=== PATIENT | male | born 1970 | race Hispanic/Latino ===

== ENCOUNTER 2020-07-04 13:15 | Emergency (ER) | payer OTHER, SELFPAY ==
[2020-07-04 13:42] LABS: Protime INR 1.02
--- NOTE | 2020-07-04 13:42 | RAD REPORT ---
EXAM DESCRIPTION: CT - Ct Stroke Brain Wo Cont - 07/04/2020 1:34 pm CLINICAL HISTORY: right sided weakness COMPARISON: No comparisons TECHNIQUE: Axial 5 millimeter thick images of the head were obtained without IV contrast. All CT scans are performed using dose optimization technique as appropriate and may include automated exposure control or mA/KV adjustment according to patient size. FINDINGS: No intracranial hemorrhage is present. No cortical edema or sulcal effacement. No acute co rtical based infarction identified. The patient does have subtle diminished attenuation in the single stroke preformer ior limb internal capsule on the left and into the left thalamus. There is superior extension of subt le hypodensity in the deep periventricular white matter of the posterior left frontal lobe. These fin dings are concerning for nonhemorrhagic CVA and could explain the patient's right side motor symptoms . No extra-axial fluid collections. Siu matter-white matter differentiation is preserved. Visualized portions of the mastoid air cells, paranasal sinuses, and orbits are unremarkable. Findings telephoned to the referring clinician [id number] hours IMPRESSION: No intracranial hemorrhage. No mass, edema or midline shift. Suspected nonhemorrhagic CVA changes in the posterior limb internal capsule on the left, left thalamu s and extending into the deep periventricular white matter of the left frontal lobe.
[2020-07-04 13:43] LABS: Absolute Lymphocytes (CBC) 2.6 K/uL (0.7-4.9); Basophils % 0.4 % (0-1.3); Lymphocytes % 24.2 % (15.3-44.8); MPV 8.5 fL (7.6-11.3)
[2020-07-04] MEDS ORDERED: NA CHLORIDE 0.9% 0 ML ONE (13:46)
[2020-07-04 13:57] LABS: ALT/SGPT 34 U/L (12-78); AST/SGOT 9 U/L (15-37); Albumin 3.8 g/dL (3.4-5.0); Alkaline Phosphatase 95 U/L (45-117); BUN Blood Urea Nitrogen 11 mg/dL (7-18); Bicarbonate 30 mmol/L (21-32); Bilirubin Direct 0.1 mg/dL (0-0.2); Bilirubin Total 0.5 mg/dL (0.2-1.0); Glucose Level 111 mg/dL (74-106); Magnesium 2.2 mg/dL (1.8-2.4); NT PRO-BNP 25 pg/mL (<125); Potassium 3.2 mmol/L (3.5-5.1); Protein, Total 7.8 g/dL (6.4-8.2); Sodium Level 139 mmol/L (136-145); Troponin (Emerg Dept Use Only) < 0.02 ng/mL (0.0-0.045)
--- NOTE | 2020-07-04 14:07 | EDPHYS ---
Physician Documentation [facility] Name: Alexander Reardon Age: 49 yrs Sex: Male : 1970 Arrival Date: 07/04/2020 Time: 13:16 Bed 5 Private MD: ED Physician Prasad Milian HPI: 07/04 13:28 This 49 yrs old Male presents to ER via Wheelchair with complaints of High jmm Blood Pressure, S/S of Possible Stroke. 13:28 The patient's problem is reported as a facial droop, paresthesias, weakness, in the jmm right upper extremity, in the right lower extremity. Onset: The symptoms/episode began/occurred yesterday. Duration: The episode is continuous. This is a 49 year old male with a history of htn that presents to the ED with complaints of right upper and right lower leg weakness. Patient states he awoke yesterday with numbness to the right side of his body. . Historical: - Allergies: 13:29 No Known Allergies; jd3 - Home Meds: 13:29 losartan oral oral [Active]; jd3 - PMHx: 13:29 Hypertension; jd3 - PSHx: 13:29 None; jd3 - Immunization history:: Adult Immunizations up to date. - Social history:: Smoking status: Patient reports the use of cigarette tobacco products, denies chronic smoking, but will smoke occasionally. ROS: 13:28 Constitutional: Negative for fever, chills, and weight loss, Cardiovascular: Negative jmm for chest pain, palpitations, and edema, Respiratory: Negative for shortness of breath, cough, wheezing, and pleuritic chest pain. 13:28 Neuro: Positive for weakness. 13:28 All other systems are negative. Exam: 13:28 Radiologist reports: possible left sided infarct. No hemorrhage jmm 13:28 Constitutional: This is a well developed, well nourished patient who is awake, alert, and in no acute distress. 13:28 Eyes: EOMI, no conjunctival erythema appreciated ENT: Moist Mucus Membranes Neck: Trachea midline, Supple Chest/axilla: Normal chest wall appearance and motion. Cardiovascular: Regular rate and rhythm. No edema appreciated Respiratory: Normal respirations, no respiratory distress appreciated Abdomen/GI: Non distended, soft Back: Normal ROM Skin: General appearance color normal 13:28 Head/face: right sided facial droop. 13:28 Neuro: Orientation: is normal, Mentation: is normal, Memory: is normal, Cranial nerves: facial droop noted on right, Motor: strength is 5/5 in the left arm and left leg, strength is 4/5 in the right arm. 13:28 Psych: Behavior/mood is pleasant, cooperative. 13:40 ECG was reviewed by the Attending Physician. [facility] Vital Signs: 13:30 BP 200 / 129; Pulse 70; Resp 17 S; Temp 98.3(O); Pulse Ox 99% on R/A; Weight 99.79 kg jd3 (R); Height 5 ft. 7 in. (170.18 cm) (R); Pain 0/10; 13:45 BP 174 / 109; Pulse 60; Resp 18 S; Pulse Ox 98% on R/A; iw 13:50 BP 142 / 84; Pulse 61; Resp 18; Pulse Ox 99% on R/A; em 14:00 BP 120 / 96; Pulse 49; Resp 18; Pulse Ox 98% on R/A; em 14:08 BP 104 / 79; Pulse 38; Resp 16; Pulse Ox 97% on R/A; em 14:20 BP 132 / 89; Pulse 54; Resp 18; Pulse Ox 97% on R/A; em 14:40 BP 139 / 96; Pulse 53; Resp 18; Pulse Ox 98% on R/A; em 17:00 BP 147 / 91; Pulse 56; Resp 18; Pulse Ox 99% on R/A; em 17:40 BP 140 / 85; Pulse 58; Resp 18; Pulse Ox 99% on R/A; em 13:30 Body Mass Index 34.46 (99.79 kg, 170.18 cm) jd3 NIH Stroke Scale Scores: 13:30 NIHSS Score: 3 em 13:52 NIHSS Score: [address] [facility] 14:59 NIHSS Score: [address] [facility] MDM: 13:25 Patient medically screened. [facility] 14:03 Data reviewed: vital signs, nurses notes. Counseling: I had a detailed discussion with rhina the patient and/or guardian regarding: the historical points, exam findings, and any diagnostic results supporting the discharge/admit diagnosis, lab results, radiology results, the need for further work-up and treatment in the hospital. ED course: I discussed the patient with Dr. Cruz whom will consult on admission. I did not administer TPA, patient out of the window. . 15:20 ED course: I was notified by Dr. Childress the concern for brain stem involvement after the [facility] patient developed an episode of bradycardia and hypotension with worsening right sided weakness. . 15:20 ED course: I discussed the patient with Dr. Michael along with concerns for brain stem [facility] involvement. Advised the patient could be managed at our hospital with IVF and q 2 hour neuro checks. . ED course: . 16:36 ED course: Dr. Childress discussed the patient with Dr. cruz whom will keep the patient [facility] in the ICU. . 17:00 ED course: Dr. Cruz and Dr. Childress evaluated MRI results. I was advised to transfer [facility] the patient due to brain stem/autonomic involvement.. 17:04 ED course: I again discussed the patient with Dr. Michael along with MRI results. Again [facility] states the patient can be managed at our facility. . 17:51 ED course: I discussed the patient with Dr. Escalera regarding the patient at [facility] in [facility]. Unable to accommodate the patient due to no neuro icu. . 18:43 ED course: . [facility] 19:08 ED course: I discussed the patient with Dr. Cummins whom accepted transfer to [facility] Stroke Unit. 07/04 13:26 Order name: Basic Metabolic Panel; Complete Time: 13:[address] [facility] 07/04 13:26 Order name: CBC with Diff; Complete Time: 14:[address] [facility] 07/04 13:26 Order name: LFT's; Complete Time: 13:[address] [facility] 07/04 13:26 Order name: Magnesium; Complete Time: 13:[address] [facility] 07/04 13:26 Order name: NT PRO-BNP; Complete Time: 13:[address] [facility] 07/04 13:26 Order name: PT-INR; Complete Time: 14:[address] [facility] 07/04 13:26 Order name: Troponin (emerg Dept Use Only); Complete Time: 13:[address] [facility] 07/04 13:26 Order name: XRAY Chest (1 view) [facility] 07/04 13:26 Order name: CT Stroke Brain w/o Contrast; Complete Time: 13:[address] [facility] 07/04 13:39 Order name: Glucose, Ancillary Testing; Complete Time: 13:44 EDMS 07/04 14:06 Order name: Echo with Doppler EDMS 07/04 14:09 Order name: MRA Head Wo Cont; Complete Time: 16:59 EDMS 07/04 14:29 Order name: Glucose, Ancillary Testing; Complete Time: 14:29 EDMS 07/04 13:26 Order name: EKG; Complete Time: 13:27 jmm 07/04 13:26 Order name: Cardiac monitoring; Complete Time: 13:48 jmm 07/04 13:26 Order name: EKG - Nurse/Tech; Complete Time: 13:48 jmm 07/04 13:26 Order name: IV Saline Lock; Complete Time: 13:30 jmm 07/04 13:26 Order name: Labs collected and sent; Complete Time: 13:30 jmm 07/04 14:06 Order name: CONS Physician Consult EDMS 07/04 14:09 Order name: MRA Neck W/Wo Cont; Complete Time: 17:02 EDMS 07/04 14:09 Order name: Brain W/Wo Cont; Complete Time: 16:59 EDMS 07/04 15:16 Order name: RAD; Complete Time: 15:24 EDMS 07/04 17:33 Order name: Diet Regular; Complete Time: 17:34 em 07/04 13:26 Order name: O2 Per Protocol; Complete Time: 13:30 jmm 07/04 13:26 Order name: O2 Sat Monitoring; Complete Time: 13:30 jmm EC:40 Rate is 61 beats/min. Rhythm is regular. QRS [place] is Normal. SC interval is normal. QRS jmm interval is normal. QT interval is normal. No Q waves. T waves are Flattened in leads aVL, aVF. Reviewed by me. Administered Medications: 13:58 Drug: Aspirin Chewable Tablet 324 mg Route: PO; em 14:00 Follow up: Response: No adverse reaction em 13:59 Drug: foLIC Acid 1 mg Route: IVPB; Site: right antecubital; em 14:30 Follow up: Response: No adverse reaction; IV Status: Completed infusion em 14:00 Drug: Thiamine 100 mg Route: IV; Rate: calculated rate; Site: right antecubital; em 14:30 Follow up: Response: No adverse reaction; IV Status: Completed infusion em 14:07 Drug: Zofran (Ondansetron) 4 mg Route: IVP; Site: right antecubital; em 14:39 Follow up: Response: No adverse reaction; Marked relief of symptoms; Nausea is decreasedem 14:15 Drug: NS 0.9% 1000 ml Route: IV; Rate: 1 bolus; Site: left forearm; em 15:14 Follow up: IV Status: Completed infusion; IV Intake: 1000ml em 15:14 Not Given (Hemodynamic Parameters): niCARdipine (25mg/250ml) 5 mg/hr IV at calculated em rate continuous; Adjust 2.5 mg/hr every 10 minutes to keep SBP between 140 mmHg and 120 mmHg. Range 0 to 15 mg/hr. Wean to minimum required dose. Point of Care Testing: Blood Glucose: 13:30 Blood Glucose: 108 mg/dL; em Ranges: Critical Glucose Levels:Adult <50 mg/dl or >400 mg/dl <40 mg/dl or >180 mg/dl Disposition: 07/04/20 19:09 Transfer ordered to [facility]. Diagnosis is Cerebral infarction. - Reason for transfer: Higher level of care. - Accepting physician is Cerebral Infarction. - Condition is Stable. - Problem is new. - Symptoms are unchanged. NIH Stroke Scale - NIH Stroke Score Date: 07/04/2020 Time: 13:30 Total Score = 3 1a. Level of Consciousness (LOC) - 0(Alert) 1b. Level of Consciousness (LOC) (Year \T\ Age) - 0(Both) 1c. LOC Commands (Open \T\ Closes Eyes/Drive In Teller) - 0(Both) 2. Best Gaze (Lateral Gaze Paresis) - 0(Normal) 3. Visual Field Loss - 0(No visual loss) 4. Facial Palsy - 1(Minor Paralysis) 5a. Left Arm: Motor (10-second hold) - 0(No drift) 5b. Right Arm: Motor (10-second hold) - 1(Drift) 6a. Left Leg: Motor (5-second hold - always test supine) - 0(No drift) 6b. Right Leg: Motor (5-second hold - always test supine) - 1(Drift) 7. Limb Ataxia (finger/nose \T\ heel/oquendo - test with eyes open) - 0(Absent) 8. Sensory Loss (pinprick arms/legs/face) - 0(Normal) 9. Best Language: Aphasia (description/naming/reading) - 0(No aphasia) 10. Dysarthria (speech clarity - read or repeat words) - 0(Normal) 11. Extinction and Inattention (visual/tactile/auditory/spatial/personal) - 0(No abnormality) Initials: NIH Stroke Scale - NIH Stroke Score Date: 07/04/2020 Time: 13:52 Total Score = 3 1a. Level of Consciousness (LOC) - 0(Alert) 1b. Level of Consciousness (LOC) (Year \T\ Age) - 0(Both) 1c. LOC Commands (Open \T\ Closes Eyes/Drive In Teller) - 0(Both) 2. Best Gaze (Lateral Gaze Paresis) - 0(Normal) 3. Visual Field Loss - 0(No visual loss) 4. Facial Palsy - 1(Minor Paralysis) 5a. Left Arm: Motor (10-second hold) - 0(No drift) 5b. Right Arm: Motor (10-second hold) - 1(Drift) 6a. Left Leg: Motor (5-second hold - always test supine) - 0(No drift) 6b. Right Leg: Motor (5-second hold - always test supine) - 1(Drift) 7. Limb Ataxia (finger/nose \T\ heel/oquendo - test with eyes open) - 0(Absent) 8. Sensory Loss (pinprick arms/legs/face) - 0(Normal) 9. Best Language: Aphasia (description/naming/reading) - 0(No aphasia) 10. Dysarthria (speech clarity - read or repeat words) - 0(Normal) 11. Extinction and Inattention (visual/tactile/auditory/spatial/personal) - 0(No abnormality) Initials: [facility] NIH Stroke Scale - NIH Stroke Score Date: 07/04/2020 Time: 14:59 Total Score = 4 1a. Level of Consciousness (LOC) - 0(Alert) 1b. Level of Consciousness (LOC) (Year \T\ Age) - 0(Both) 1c. LOC Commands (Open \T\ Closes Eyes/Drive In Teller) - 0(Both) 2. Best Gaze (Lateral Gaze Paresis) - 0(Normal) 3. Visual Field Loss - 0(No visual loss) 4. Facial Palsy - 1(Minor Paralysis) 5a. Left Arm: Motor (10-second hold) - 0(No drift) 5b. Right Arm: Motor (10-second hold) - 1(Drift) 6a. Left Leg: Motor (5-second hold - always test supine) - 0(No drift) 6b. Right Leg: Motor (5-second hold - always test supine) - 2(Drift, some effort against gravity) 7. Limb Ataxia (finger/nose \T\ heel/oquendo - test with eyes open) - 0(Absent) 8. Sensory Loss (pinprick arms/legs/face) - 0(Normal) 9. Best Language: Aphasia (description/naming/reading) - 0(No aphasia) 10. Dysarthria (speech clarity - read or repeat words) - 0(Normal) 11. Extinction and Inattention (visual/tactile/auditory/spatial/personal) - 0(No abnormality) Initials: [facility] Addendum: 07/06/2020 14:35 Co-signature as Attending Physician, Prasad Milian MD I agree with the [facility] assessment and plan of care. Signatures: Dispatcher [employer] [facility] Prasad Milian MD MD [facility] Catracho Loo PA PA [facility] Singh Fernandez, RN RN em Matt Marie em1 Rajat Morrow RN RN jEvan Luna RN RN mg2 Corrections: (The following items were deleted from the chart) 07/04 14:09 14:01 MR STROKE PROTOCOL+MRI.RAD.BRZ ordered. [facility] 14:24 14:06 Hospitalization Ordered by Sukhjinder Childress MD for Observation. Preliminary em1 diagnosis is Cerebral infarction. Bed requested for Telemetry/MedSurg (observation). Status is Observation. Condition is Stable. Problem is new. Symptoms are unchanged. [facility] 14:45 14:24 07/04/2020 14:06 Hospitalization Ordered by Sukhjinder Childress MD for [facility] Observation. Preliminary diagnosis is Cerebral infarction. Bed requested for Telemetry/MedSurg (observation). Status is Observation. Condition is Stable. Problem is new. Symptoms are unchanged. em1 16:37 14:46 07/04/2020 14:46 Transfer ordered to [facility]. Diagnosis is Cerebral infarction. Reason for transfer: Higher level of care. Accepting physician is Neurology. Condition is Stable. Problem is new. Symptoms are unchanged. [facility] 17:01 16:39 Hospitalization Ordered by Sukhjinder Childress MD for Inpatient Admission. [facility] Preliminary diagnosis is Cerebral infarction. Bed requested for Intensive Care Unit. Status is Inpatient Admission. Condition is Stable. Problem is new. Symptoms are unchanged. [facility] 18:24 14:03 ED course: I discussed the patient with Dr. Cruz whom will consult on [facility] admission. I did not administer TPA, patient out of the window. . [facility] 18:46 18:43 ED course: I again discussed the patient with Dr. Michael along with MRI [facility] results. Again states the patient can be managed at our facility. . [facility] 19:08 17:01 07/04/2020 17:[address] [facility]. Diagnosis is Cerebral infarction. Reason for transfer: Higher level of care. Accepting physician is Alec. Condition is Stable. Problem is new. Symptoms are unchanged. [facility] 20:13 19:09 07/04/2020 19:09 Transfer ordered to [facility]. Diagnosis mg2 is Cerebral infarction. Reason for transfer: Higher level of care. Accepting physician is Cerebral Infarction. Condition is Stable. Problem is new. Symptoms are unchanged. [facility]
--- NOTE | 2020-07-04 14:07 | ER ---
Nurse's Notes [facility] Name: Alexander Reardon Age: 49 yrs Sex: Male : 1970 Arrival Date: 07/04/2020 Time: 13:16 Bed 5 Private MD: Diagnosis: Cerebral infarction Presentation: 07/04 13:26 Chief complaint: Patient states: "I woke up yesterday and I was having numbness of my jd3 right side of my face and hand. today it feels worse, like my right leg is numb and my right eye feels heavy.". Coronavirus screen: At this time, the client does not indicate any symptoms associated with coronavirus-19. Ebola Screen: Patient negative for fever greater than or equal to 101.5 degrees Fahrenheit, and additional compatible Ebola Virus Disease symptoms. An acute neurological deficit is present. The charge nurse has been notified. The patient has been moved to a treatment area. Pre-hospital glucose is not applicable to this patient. Initial Sepsis Screen: Does the patient meet any 2 criteria? No. Patient's initial sepsis screen is negative. Does the patient have a suspected source of infection? No. Patient's initial sepsis screen is negative. Risk Assessment: Do you want to hurt yourself or someone else? Patient reports no desire to harm self or others. Onset of symptoms was July 03, 2020 at 08:00. 13:26 Method Of Arrival: Wheelchair jd3 13:26 Acuity: MARLY 2 jd3 Triage Assessment: 13:29 The onset of the patients symptoms was July 03, 2020 at 08:00. General: Appears in jd3 no apparent distress. comfortable, Behavior is calm, cooperative, appropriate for age. Neuro: Level of Consciousness is awake, alert, obeys commands, Oriented to person, place, time, situation, Reports numbness in right side of head, right hand, right arm and right leg. Stroke Activation: Symptom onset > 6 hours Physician: Stroke Attending; Name: Maicol; Notified At: 13:27; Arrived At: 13:27 Physician: Chief Stroke Resident; Name: ; Notified At: 13:27; Arrived At: Physician: Stroke Resident; Name: ; Notified At: 13:27; Arrived At: Physician: ED Attending; Name: ; Notified At: 13:27; Arrived At: Physician: ED Resident; Name: ; Notified At: 13:27; Arrived At: Historical: - Allergies: 13:29 No Known Allergies; jd3 - Home Meds: 13:29 losartan oral oral [Active]; jd3 - PMHx: 13:29 Hypertension; jd3 - PSHx: 13:29 None; jd3 - Immunization history:: Adult Immunizations up to date. - Social history:: Smoking status: Patient reports the use of cigarette tobacco products, denies chronic smoking, but will smoke occasionally. Screenin:30 Abuse screen: Denies threats or abuse. Nutritional screening: No deficits noted. em Tuberculosis screening: No symptoms or risk factors identified. Fall Risk None identified. Assessment: 13:30 General: Appears in no apparent distress. comfortable, Behavior is calm, cooperative, em appropriate for age. Pain: Denies pain. Neuro: Level of Consciousness is awake, alert, obeys commands, Oriented to person, place, time, situation, Appropriate for age Smoking Tobacco Packer Hand are weak on right in right Speech is slurred, Facial droop on right, paresthesias in right arm and right leg and right side of head Reports weakness in right arm and right leg. Cardiovascular: Denies chest pain, Capillary refill < 3 seconds Patient's skin is warm and dry. Respiratory: Airway is patent Respiratory effort is even, unlabored, Respiratory pattern is regular, symmetrical. GI: Patient currently denies nausea, vomiting. Derm: Skin is intact, is healthy with good turgor, Skin is pink, warm \\T\\ dry. Musculoskeletal: Capillary refill < 3 seconds, Range of motion: intact in all extremities. 13:40 Patient has been NPO before screening. The patient is alert, and able to follow em commands. The patient does not exhibit slurred or garbled speech. The patient is not exhibiting difficulty speaking. The patient does not exhibit difficulty understanding words. The patient is able to swallow own secretions with no drooling or need for suction. Patient tolerated one teaspoon of water. No drooling, immediate coughing, gurgling, or clearing of the throat was noted. The patient tolerated 90mL of water. No drooling, immediate coughing, gurgling, or clearing of the throat was noted. The patient passed the bedside swallow screening. Oral medications may be given as ordered. Contact Physician for further diet orders. Provider notified of bedside swallow screening results: Catracho NAIDU. 13:50 VAN Scoring: Arm Drift: Patients demonstrates NO arm weakness. Patient is VAN Negative. jl7 T-PA (Activase) Screening: Contraindications: Patient reports onset of signs and symptoms of stroke greater than 6 hours ago: Yes. 14:05 Reassessment: pt became bradycardic HR 36, BP 104/79, clammy diaphoretic, and reports em right arm is unable to move, provider notified, received new verbal orders for medication. 14:10 Reassessment: reports symptoms have improved, right arm still very weak. em 14:27 Reassessment: Dr. Childress at bedside. em 15:10 Reassessment: Patient appears in no apparent distress at this time. Patient and/or em family updated on plan of care and expected duration. Pain level reassessed. Patient is alert, oriented x 3, equal unlabored respirations, skin warm/dry/pink. Patient states symptoms have improved. 15:15 Reassessment: Patient appears in no apparent distress at this time. wheeled to MRI. em 16:21 Reassessment: Patient appears in no apparent distress at this time. returned from MRI. em 17:31 Reassessment: Patient appears in no apparent distress at this time. Patient and/or em family updated on plan of care and expected duration. Pain level reassessed. Patient is alert, oriented x 3, equal unlabored respirations, skin warm/dry/pink. awaiting dispostion. 17:45 Reassessment: Patient appears in no apparent distress at this time. dinner tray given. em 19:39 Reassessment: room not ready for yet as per Sindhu of [facility]. mg2 20:12 Reassessment: report given to EMS, Patient's signed the transfer form. mg2 20:50 Reassessment: report given to VENU Lehman of [facility]. mg2 Vital Signs: 13:30 BP 200 / 129; Pulse 70; Resp 17 S; Temp 98.3(O); Pulse Ox 99% on R/A; Weight 99.79 kg jd3 (R); Height 5 ft. 7 in. (170.18 cm) (R); Pain 0/10; 13:45 BP 174 / 109; Pulse 60; Resp 18 S; Pulse Ox 98% on R/A; iw 13:50 BP 142 / 84; Pulse 61; Resp 18; Pulse Ox 99% on R/A; em 14:00 BP 120 / 96; Pulse 49; Resp 18; Pulse Ox 98% on R/A; em 14:08 BP 104 / 79; Pulse 38; Resp 16; Pulse Ox 97% on R/A; em 14:20 BP 132 / 89; Pulse 54; Resp 18; Pulse Ox 97% on R/A; em 14:40 BP 139 / 96; Pulse 53; Resp 18; Pulse Ox 98% on R/A; em 17:00 BP 147 / 91; Pulse 56; Resp 18; Pulse Ox 99% on R/A; em 17:40 BP 140 / 85; Pulse 58; Resp 18; Pulse Ox 99% on R/A; em 13:30 Body Mass Index 34.46 (99.79 kg, 170.18 cm) j NIH Stroke Scale Scores: 13:30 NIHSS Score: 3 em 13:52 NIHSS Score: 3 [facility] 14:59 NIHSS Score: 4 [facility] ED Course: 13:16 Patient arrived in ED. as 13:20 Catracho Loo PA is PHCP. [facility] 13:21 Prasad Milian MD is Attending Physician. [facility] 13:28 Triage completed. j 13:30 Singh Fernandez, VENU is Primary Nurse. em 13:30 Arm band placed on. EKG completed in triage. Results shown to MD. jd3 13:30 Initial lab(s) drawn, by wi, sent to lab. Inserted saline lock: 20 gauge in right em antecubital area, using aseptic technique. Blood collected. inserted by VENU Robles. 13:31 Patient has correct armband on for positive identification. Placed in gown. Bed in low em position. Call light in reach. Pulse ox on. NIBP on. 13:35 CT Stroke Brain w/o Contrast In Process Unspecified. EDMS 13:45 Inserted saline lock: 20 gauge in left forearm, using aseptic technique. em 14:05 Sukhjinder Childress MD is Hospitalizing Provider. [facility] 14:17 EKG done, by ED staff, reviewed by Prasad Milian MD. mt 16:23 MRA Head Wo Cont In Process Unspecified. EDMS 16:23 MRA Neck W/Wo Cont In Process Unspecified. EDMS 16:23 Brain W/Wo Cont In Process Unspecified. EDMS 16:38 Sukhjinder Childress MD is Hospitalizing Provider. [facility] 19:02 Samantha called to speak with EVANGELISTA Braga, regarding the transfer request. tt3 19:17 Madisyn Pham called back with administrative approval. The accepting physician is tt3 Dr. Smith and accepted the pt at 1917. The pt is going to [facility] Stroke Unit, no bed assignment was given. Face sheet and MOT faxed to ([phone] per Madisyn's request. Nurse to call report to . Imaging sent through the [place], and disc is with chart. 19:40 [facility] stated they would transfer the pt. tt3 20:12 No provider procedures requiring assistance completed. Patient transferred, IV remains mg2 in place. Administered Medications: 13:58 Drug: Aspirin Chewable Tablet 324 mg Route: PO; em 14:00 Follow up: Response: No adverse reaction em 13:59 Drug: foLIC Acid 1 mg Route: IVPB; Site: right antecubital; em 14:30 Follow up: Response: No adverse reaction; IV Status: Completed infusion em 14:00 Drug: Thiamine 100 mg Route: IV; Rate: calculated rate; Site: right antecubital; em 14:30 Follow up: Response: No adverse reaction; IV Status: Completed infusion em 14:07 Drug: Zofran (Ondansetron) 4 mg Route: IVP; Site: right antecubital; em 14:39 Follow up: Response: No adverse reaction; Marked relief of symptoms; Nausea is decreasedem 14:15 Drug: NS 0.9% 1000 ml Route: IV; Rate: 1 bolus; Site: left forearm; em 15:14 Follow up: IV Status: Completed infusion; IV Intake: 1000ml em 15:14 Not Given (Hemodynamic Parameters): niCARdipine (25mg/250ml) 5 mg/hr IV at calculated em rate continuous; Adjust 2.5 mg/hr every 10 minutes to keep SBP between 140 mmHg and 120 mmHg. Range 0 to 15 mg/hr. Wean to minimum required dose. Point of Care Testing: Blood Glucose: 13:30 Blood Glucose: 108 mg/dL; em Ranges: Intake: 15:14 IV: 1000ml; Total: 1000ml. em Outcome: 14:06 Decision to Hospitalize by Provider. pinom 14:46 ER care complete, transfer ordered by MD. jmm 16:39 Decision to Hospitalize by Provider. jmm 17:01 ER care complete, transfer ordered by MD. jmm 19:09 ER care complete, transfer ordered by MD. jmm 20:12 Transferred by ground EMS to [facility], Transfer form completed. mg2 20:12 Condition: stable 20:12 Instructed on the need for transfer, Demonstrated understanding of instructions. 20:13 Patient left the ED. mg2 NIH Stroke Scale - NIH Stroke Score Date: 07/04/2020 Time: 13:30 Total Score = 3 1a. Level of Consciousness (LOC) - 0(Alert) 1b. Level of Consciousness (LOC) (Year \\T\\ Age) - 0(Both) 1c. LOC Commands (Open \\T\\ Closes Eyes/Resort Manager) - 0(Both) 2. Best Gaze (Lateral Gaze Paresis) - 0(Normal) 3. Visual Field Loss - 0(No visual loss) 4. Facial Palsy - 1(Minor Paralysis) 5a. Left Arm: Motor (10-second hold) - 0(No drift) 5b. Right Arm: Motor (10-second hold) - 1(Drift) 6a. Left Leg: Motor (5-second hold - always test supine) - 0(No drift) 6b. Right Leg: Motor (5-second hold - always test supine) - 1(Drift) 7. Limb Ataxia (finger/nose \\T\\ heel/oquendo - test with eyes open) - 0(Absent) 8. Sensory Loss (pinprick arms/legs/face) - 0(Normal) 9. Best Language: Aphasia (description/naming/reading) - 0(No aphasia) 10. Dysarthria (speech clarity - read or repeat words) - 0(Normal) 11. Extinction and Inattention (visual/tactile/auditory/spatial/personal) - 0(No abnormality) Initials: em NIH Stroke Scale - NIH Stroke Score Date: 07/04/2020 Time: 13:52 Total Score = 3 1a. Level of Consciousness (LOC) - 0(Alert) 1b. Level of Consciousness (LOC) (Year \\T\\ Age) - 0(Both) 1c. LOC Commands (Open \\T\\ Closes Eyes/Resort Manager) - 0(Both) 2. Best Gaze (Lateral Gaze Paresis) - 0(Normal) 3. Visual Field Loss - 0(No visual loss) 4. Facial Palsy - 1(Minor Paralysis) 5a. Left Arm: Motor (10-second hold) - 0(No drift) 5b. Right Arm: Motor (10-second hold) - 1(Drift) 6a. Left Leg: Motor (5-second hold - always test supine) - 0(No drift) 6b. Right Leg: Motor (5-second hold - always test supine) - 1(Drift) 7. Limb Ataxia (finger/nose \\T\\ heel/oquendo - test with eyes open) - 0(Absent) 8. Sensory Loss (pinprick arms/legs/face) - 0(Normal) 9. Best Language: Aphasia (description/naming/reading) - 0(No aphasia) 10. Dysarthria (speech clarity - read or repeat words) - 0(Normal) 11. Extinction and Inattention (visual/tactile/auditory/spatial/personal) - 0(No abnormality) Initials: [facility] NIH Stroke Scale - NIH Stroke Score Date: 07/04/2020 Time: 14:59 Total Score = 4 1a. Level of Consciousness (LOC) - 0(Alert) 1b. Level of Consciousness (LOC) (Year \\T\\ Age) - 0(Both) 1c. LOC Commands (Open \\T\\ Closes Eyes/Resort Manager) - 0(Both) 2. Best Gaze (Lateral Gaze Paresis) - 0(Normal) 3. Visual Field Loss - 0(No visual loss) 4. Facial Palsy - 1(Minor Paralysis) 5a. Left Arm: Motor (10-second hold) - 0(No drift) 5b. Right Arm: Motor (10-second hold) - 1(Drift) 6a. Left Leg: Motor (5-second hold - always test supine) - 0(No drift) 6b. Right Leg: Motor (5-second hold - always test supine) - 2(Drift, some effort against gravity) 7. Limb Ataxia (finger/nose \\T\\ heel/oquendo - test with eyes open) - 0(Absent) 8. Sensory Loss (pinprick arms/legs/face) - 0(Normal) 9. Best Language: Aphasia (description/naming/reading) - 0(No aphasia) 10. Dysarthria (speech clarity - read or repeat words) - 0(Normal) 11. Extinction and Inattention (visual/tactile/auditory/spatial/personal) - 0(No abnormality) Initials: rhina Signatures: Dispatcher [employer] Catracho Mayfield PA PA jmm Munoz, Edgar, RN RN Crystal Christian Irene, Margaret Kendall RN, RN RN jl7 Sweetie Robledo mt, Jonathon, RN RN jd3 Evan Buck, RN RN mg2 Zonia, Arden tt3
[2020-07-04] MEDS ORDERED: ASPIRIN 81 MG CHEWABLE TABLET ONE (14:09)
[2020-07-04] MEDS ORDERED: FOLIC ACID 5 MG/ML VIAL ONE (14:10)
[2020-07-04] MEDS ORDERED: THIAMINE 200 MG/2 ML INJ ONE (14:15)
[2020-07-04] MEDS ORDERED: ONDANSETRON 4 MG/2 ML VIAL ONE (14:21)
[2020-07-04] MEDS ORDERED: NA CHLORIDE 0.9% 1,000 ML ONE (14:24)
--- NOTE | 2020-07-04 15:08 | P.CNS ---
Date of Consult: 07/04/20 Reason for consult: eval for admission 49yo male with PMH: HTN, who presents to ED due to progressively worsening R sided weakness/numbness that he first started noticing yesterday around 8am. He first noticed some imbalance / difficulty lifting his R leg and gripping things with his R hand. Today, he was unable to lift his R foot off the ground to put his pants on. His family also noted some mild slurring and right sided facial droop. He otherwise denies any recent illness, fever, SOB, chest pain, abdominal pain, nausea/vomiting, palpitations, blurred vision. He was seen at a health clinic and advised to go to ED due to concern for stroke. In the ED a CT Head was noted suspected nonhemorrhagic CVA changes in the posterior limb internal capsule on the left, left thalamus, and extending into the deep periventricular white matter of the left frontal lobe. ROS: 10 point review of systems negative, except as noted in HPI Home Medications: Losartan Family Hx: Mother: DM2, multiple family members with hypertension PMH: HTN Surgical Hx: reports none Social: tobacco use (4-5 cig/day), occasional EtOH use PE: Gen: NAD, AAOx3 HEENT: EOMI, R lower facial droop, slurring of speech CV: sinus bradycardia (50), no m/r/g, no edema Pulm: CTAB, no w/r/r, on RA Abd: soft, NTND Ext: no tenderness, no erythema Neuro: RUE: 4 to 4+/5, RLE: 2+/5, LUE/LLE: 5/5 A/P: nonhemorrhagic CVA HTN Patient was noted to have BP: 200/120. Neurology was contacted and recommended admission to the hospitalist service for further evaluation /workup. Upon my arrival to ED, patient just recovered from a syncopal/near-syncopal episode - he became pale, seemed to "oass out", his BP dropped to 104/79, his HR down to 30s (from 60-70s), and he was noted by ED staff to have worsening of his symptoms. The case was discussed with neurology again, who recommended transfer to tertiary care center for neuro ICU level of care (possibly intra-atrial m onitoring, further testing and level of care we are unable to provide. There is concern of some autonomic dysfunction as patient didn't receive any medication in the ED to affect his blood pressure, and the patient would benefit from being in a tertiary care center if that were to occur.
--- NOTE | 2020-07-04 15:14 | RAD REPORT ---
EXAM DESCRIPTION: Brenda Single View07/04/2020 3:00 pm CLINICAL HISTORY: Chest pain COMPARISON: 2014 FINDINGS: The lungs appear clear of acute infiltrate. The heart is normal size IMPRESSION: No acute abnormalities displayed
--- NOTE | 2020-07-04 16:41 | P.HP ---
Certification for Inpatient Patient admitted to: Inpatient With expected LOS: >2 Midnights Practitioner: I am a practitioner with admitting privileges, knowledge of patient current condition, hospital course, and medical plan of care. Services: Services provided to patient in accordance with Admission requirements found in Title 42 Section 412.3 of the Code of Federal Regulations Patient History Date of Service: 07/04/20 Reason for admission: CVA History of Present Illness: 49yo male with PMH: HTN, who presents to ED due to progressively worsening R sided weakness/numbness that he first started noticing yesterday around 8am. He first noticed some imbalance / difficulty lifting his R leg and gripping things with his R hand. Today, he was unable to lift his R foot off the ground to put his pants on. His family also noted some mild slurring and right sided facial droop. He otherwise denies any recent illness, fever, SOB, chest pain, abdominal pain, nausea/vomiting, palpitations, blurred vision. He was seen at a health clinic and advised to go to ED due to concern for stroke. In the ED a CT Head was noted suspected nonhemorrhagic CVA changes in the posterior limb internal capsule on the left, left thalamus, and extending into the deep periventricular white matter of the left frontal lobe. Patient was noted to have BP: 200/120. Neurology was contacted and recommended admission to the hospitalist service for further evaluation /workup. Upon my arrival to ED, patient just recovered from a syncopal/near-syncopal episode - he became pale, seemed to "pass out", his BP dropped to 104/79, his HR down to 30s (from 60-70s), and he was noted by ED staff to have worsening of his symptoms. The case was discussed with neurology again, who recommended transfer to tertiary [facility] for neuro ICU level of care (possibly intra-atrial monitoring, further testing and level of care we are unable to provide. There is concern of some autonomic dysfunction as patient didn't receive any medication in the ED to affect his blood pressure, and the patient would benefit from being in a tertiary care center if that were to occur. Neurologist at [facility] denied transfer. Allergies No Known Drug Allergies Allergy (Unverified 10/03/14 03:13) Unknown - Past Medical/Surgical History Diabetic: No -: HTN Past Surgical History: Patient denies surgical history - Family History Mother -: Diabetes - Social History Smoking Status: Current every day smoker (4-5 cig/day) Alcohol use: Yes Place of Residence: Home Review of Systems 10-point ROS is otherwise unremarkable Physical Examination - Physical Exam General: Alert, In no apparent distress, Oriented x3 HEENT: PERRLA, EOMI Respiratory: Clear to auscultation bilaterally, Normal air movement Cardiovascular: No edema, Regular rate/rhythm (sinus bradycardia (50s)), Normal S1 S2 Gastrointestinal: Soft and benign, Non-distended, No tenderness Musculoskeletal: No tenderness Integumentary: No rashes Neurological: Cranial nerves 3-12 intact (except for R lower facial droop), Normal affect, Abnormal speech (slurring), Abnormal strength (RLE: 2/5, RUE: 4to4+/5, LUE: 5/5, LLE: 5/5) - Studies Laboratory Data (last 24 hrs) 07/04/20 13:25: PT 12.0, INR 1.02 07/04/20 13:25: WBC 10.6, Hgb 16.3, Hct 46.0, Plt Count 240 07/04/20 13:25: Sodium 139, Potassium 3.2 L, BUN 11, Creatinine 1.18, Glucose 111 H, Magnesium 2.2, Total Bilirubin 0.5, AST 9 L, ALT 34, Alkaline Phosphatase 95 Assessment and Plan - Advance Directives Does patient have a Living Will: No Does patient have a Durable POA for Healthcare: No Physician Review Additional Text: nonhemorrhagic CVA HTN Tertiary care center neurologist denied transfer. -will admit pt to ICU, q1hr neurochecks, monitor vitals -received ASA, folic acid, thiamine in ED, continue on admission, give high dose statin -will give IVF @ 75ml/hr with this possible vasovagal episode -MRI, echo ordered -labs ordered -will allow for some permissive hypertension, ideally between 150-180 systolic -may benefit from inpatient rehab eval -PT/OT consulted Dispo: likely inpatient rehab on discharge Time Spent Managing Pts Care (In Minutes): 55
--- NOTE | 2020-07-04 16:51 | RAD REPORT ---
EXAM DESCRIPTION: MRI - Brain W/Wo Cont - 07/04/2020 4:23 pm CLINICAL HISTORY: numbness/ right-sided weakness COMPARISON: July 04, [address] TECHNIQUE: Axial, sagittal, and coronal magnetic images of the brain were obtained. 20 cc MultiHance administered intravenously FINDINGS: Mild signal within periventricular, deep and subcortical white matter probably ischemic c hanges secondary to small vessel disease. 9 millimeter area of abnormal signal within the deep white matter of the left cerebrum probably an old infarction The ventricles are normal in caliber. Diffusion-weighted/ ADC mapping sequences demonstrate an 18 x 8 millimeter area of abnormal signal wi thin the left aspect of the koko consistent with acute infarct No abnormal enhancement within the brain is seen. An extra-axial fluid collection is not noted. Fluid within the sinuses/mastoids is not seen IMPRESSION: Acute pontine infarction Dr Milian notified 4:46 p.m. on July 04, 2020
--- NOTE | 2020-07-04 16:56 | RAD REPORT ---
EXAM DESCRIPTION: MRI - MRA Head Wo Cont - 07/04/2020 4:23 pm CLINICAL HISTORY: Numbness/right-sided weakness COMPARISON: None. TECHNIQUE: Magnetic resonance angiogram was performed. 3D MIPS reconstruction performed FINDINGS: The anterior cerebral, middle cerebral, posterior cerebral, distal internal carotid and ba silar arteries do not demonstrate a significant stenosis. An aneurysm is not displayed. IMPRESSION: Unremarkable MRA brain.
--- NOTE | 2020-07-04 16:58 | RAD REPORT ---
EXAM DESCRIPTION: MRI - MRA Neck W/Wo Cont - 07/04/2020 4:23 pm CLINICAL HISTORY: Numbness/right-sided weakness COMPARISON: None. TECHNIQUE: Magnetic resonance angiogram of the neck was performed. 20 cc MultiHance was administered intravenously. 3D MIPS reconstruction performed FINDINGS: The common carotid, internal carotid and external carotid arteries do not demonstrate a si gnificant stenosis. An aneurysm is not seen. The left vertebral artery is dominant. The proximal left vertebral artery is tortuous. No stenosis. 13 millimeter segment of mild narrowing involves the proximal right vertebral artery IMPRESSION: 13 millimeter segment of mild narrowing involving the proximal right vertebral artery NASCET criteria used. Mild 0-49% stenosis Moderate 50-69% stenosis Severe 70-99% stenosis
[2020-07-04 21:09] VITALS: TEMP 98.3
[2020-07-04 21:21] VITALS: O2SAT 99
--- NOTE | 2020-07-04 21:21 | CON ---
Reason For Consultation: Consultation called because of stroke. History Of Present Illness: Mr. Reardon is a 49-year-old right-handed patient with hyperte nsion, dyslipidemia, chronic cigarette smoking, who comes to [facility] with symptoms of str ana. He woke up on the , that is yesterday, in the morning around 8 and noticed numbness and randy e weakness in the right face, his right arm was heavy, and some difficulty controlling the right leg. He did not immediately seek medical attention, however, over the next 24 hours or so hours, his sym ptoms worsened and eventually came to [facility], arrival time 1316 on 07/04/2020. His head CT scan in the emergency room done at 1326 on 07/04 showed no intracranial hemorrhage, mass issue, o r acute ischemic episodes, however, his subsequent brain MRI stroke protocol identified a 1.8 x 0.8 m m acute stroke in the left aspect of the koko consistent with an acute infarct. It should be noted t hat while in the emergency room, the patient had an episode of severe drop in blood pressure, which d ecreased from a very elevated number where the systolic blood pressure was around 200 to diastolic of about 100. At that point, he had acute worsening of his right-sided symptoms with zero movement in the right arm and face and his right leg was also weak. The patient's blood pressure did recover and around few hours after his systolic blood pressures did go back up into the 140s to 150s and his sym ptoms did go back to his baseline level of weakness on the right upper and lower extremities. Given the location of the stroke in the brainstem and the patient's potential for significant worseni ng and the requirement of possible neuro ICU management, the transfer center in [place] was contacted and Dr. Michael, the neurologist, accepting patient was identified and he was spoken to. The patient 's condition was communicated to Dr. Michael and he actually refused to accept the patient and is comm unicating that his significant autonomic dysfunction was not likely to be related to his brainstem st roke and that the patient should be managed in a non ICU setting or a non neuro-ICU setting, I actual ly did not agree with that decision. We subsequently contacted [facility] and was abl e to get the patient transferred for acute neuromonitoring in an ICU setting given the possibility of a brainstem stroke causing swelling and potentially hemorrhagic conversion where we would need a hig her level of care. At this point, the patient is hemodynamically stable with blood pressures, systol ic maintained over 140s to 150s. Past Medical History: Tobacco dependency, hypertension, dyslipidemia. The patient denies history of diabetes mellitus. Home Medications: Losartan and he is not taking an aspirin. Past Surgical History: None. Family History: Noncontributory. Review of Systems: Aside from mentioned, he denies any fevers or chills, nausea, vomiting, myalgias, arthralgias, rash, headache, weight change. Any psychiatric complaints also denied. Physical Examination: Vital Signs: Blood pressure 150s/90s, pulse 60s to 70s. He is afebrile. General: Mr. Reardon is resting in bed. He is in no significant distress. HEENT: He is normocephalic, atraumatic. Sclerae anicteric. Oropharynx is pink and moist. Neck: Supple. Chest: Clear. Heart: Regular. Extremities: No edema, cyanosis, or clubbing. Neurological: He is alert and oriented to situation, place, and person. He follows commands appropr iately. Cranial nerve examination remarkable for decrease in the right nasolabial fold with clear ex cursions and smiling. The patient had full visual fox to confrontation. Pupils are round and donna ctive to light and extraocular movements were intact. He had intact facial sensation in V1, V2, V3 b ilaterally. Tongue and palate were in the midline. Motor examination, he had some moderate resistan ce against gravity in the right upper extremity proximally, around 4 distally, around 3+ in terms of hand flexion-extension and wrist flexion-extension on the right, in the right lower extremity around 4/5 proximally and distally, left lower extremity 5/5. Sensation intact in the right and left upper and lower extremities. Reflexes symmetric around 1 to 2+ in upper and lower extremities. Coordinati on, some difficulty with mild dysmetria noted in the right upper and lower extremities. His NIH Stro ke Scale was 5. He does have a right facial droop, right arm and right leg weakness, and some dysart hria. He has no expressive or receptive aphasia. Laboratory Studies: Complete blood count with differential is completely normal. Coagulation panel shows INR of 1.02. Chemistries remarkable for a slightly low potassium of 3.2, glucose ranged up to 116. Liver function studies unremarkable. Magnesium 2.2. His brain MRA was unremarkable. MRA of h is neck showed a 13 mm segment of mild narrowing in the proximal right vertebral artery. The MRI of his brain identified an 18 x 8 mm area of abnormal signal within the left aspect of the koko consiste nt with an acute infarct. Chest x-ray showed no acute abnormalities. Assessment: Mr. Reardon is a 49-year-old patient with an acute pontine stroke, who has some evidenc e of autonomic dysfunction related to his stroke. He also had an episode of severe hypotension from a very elevated systolic blood pressure, which was associated with acute, although transient worsenin g of his right face, arm, and leg weakness. His blood pressures did improve after hydration and he i s now more hemodynamically stable, but obviously still at risk of significant worsening over the next 3-5 days as swelling in the brainstem with a stroke of 2 x about 1 cm can lead to more catastrophic neurological deficits. Further hemorrhagic conversion is a risk and may require an acute interventio n. Those factors make the patient not appropriate for our facility, as we do not have neuro ICU for monitoring the patient appropriately and if intervention is required, we have no option there. This was discussed at the transfer center with [facility]'s, Dr. Michael, and he refused the patient desp ite communicating the potential dire nature of the patient, although he is doing well at this point. The transfer center at [facility] was contacted and the patient was immediately accepted for a higher level of care. At this point, the patient again is hemodynamically stable and will be transf erred to [facility] to the stroke unit and he was advised to stop smoking and was told of the importance of being compliant with medications. In addition, he should be on an aspirin at l east 81 mg daily and folic acid 2 mg daily and to be placed on high-dose statin and may have permissi ve hypertension for the next 3-5 days and at some point, the patient may require 4-vessel angiogram t o help stratify the risk of his posterior circulation being involved in additional strokes. The brennan ent's blood pressure long-term would be potentially slightly elevated compared to a normal of 120 or greater given his posterior circulation vascular compromise. Otherwise, the patient may return to [facility] for rehabilitation once he is out of the acute stroke phase. JOHNATHON Voice ID: [id number] Report ID: [id number]
[2020-07-04 21:28] VITALS: BP 140/85
--- NOTE | 2020-07-06 10:14 | EKG ---
Test Date: 2020-07-04 Test Time: 13:38:35 Steam Gigger: DIMPLE MEASUREMENT RESULTS: Intervals: Rate: 61 OK: 146 QRSD: 94 QT: 426 QTc: 428 Whitmer: P: 24 OK: 146 QRS: 23 T: 54 INTERPRETIVE STATEMENTS: Normal sinus rhythm Nonspecific T wave abnormality Abnormal ECG Compared to ECG 11/19/1998 22:15:00 T-wave abnormality now present Electronically Signed On 07-06-20 10:10:31 SENIOR INTERACTIVE DEVELOPER by Gilberto Sandoval
--- NOTE | 2020-07-07 07:20 | ECHO ---
HEIGHT: 5 ft 7 in WEIGHT: 220 lb 0 oz DATE OF STUDY: 07/04/[address]: Sukhjinder Childress MD 2-DIMENSIONAL: YES M.MODE: YES DOPPLER: YES COLOR FLOW: YES TDS: YES PORTABLE: DEFINITY: BUBBLE STUDY: DIAGNOSIS: CARDIAC HISTORY: CATHERIZATION: SURGERY: PROSTHETIC VALVE: PACEMAKER: MEASUREMENTS (cm) DIASTOLIC (NORMALS) SYSTOLIC (NORMALS) IVSd 1.4 (0.6-1.2) LA Diam 3.4 (1.9-4.0) LVEF 59% LVIDd 4.1 (3.5-5.7) LVIDs 2.8 (2.0-3.5) %FS 31% LVPWd 1.4 (0.6-1.2) Ao Diam 3.6 (2.0-3.7) 2 DIMENSIONAL ASSESSMENT: RIGHT ATRIUM: NORMAL LEFT ATRIUM: NORMAL RIGHT VENTRICLE: NORMAL LEFT VENTRICLE: LEFT VENTRICULAR HYPERTROPHY TRICUSPID VALVE: NORMAL MITRAL VALVE: NORMAL PULMONIC VALVE: NORMAL AORTIC VALVE: NORMAL PERICARDIAL EFFUSION: NONE AORTIC ROOT: NORMAL LEFT VENTRICULAR WALL MOTION: NORMAL DOPPLER/COLOR FLOW: NORMAL COMMENTS: LEFT VENTRICULAR HYPERTROPHY (CONCENTRIC). NORMAL EJECTION FRACTION. NO WALL MOTION ABNORMALITY. NO EFFUSION. TECHNOLOGIST: RUBI RUSHING
== END 2020-07-04 20:13 | disposition short-term general hospital (02) ==
LOC: ER 13:15 → ERHOLD 14:04 → UNDOADMIN 14:04 → ERHOLD 16:28 → ER 20:13
DX: I63.9 Cerebral infarction, unspecified (principal); I10 Essential (primary) hypertension; R29.703 NIHSS score 3; E78.5 Hyperlipidemia, unspecified; F17.210 Nicotine dependence, cigarettes, uncomplicated; Z83.3 Family history of diabetes mellitus
CPT/HCPCS: 36415; 70450; 70544; 70549; 70553; 71045; 80048; 80076; 82947; 83735; 83880; 84484; 85025; 85610; 93005; 93306; 96361; 96365; 96375; 99285; A9577; J2405; J3411; J7030; J7050